=== PATIENT | female | born 1950 | race Caucasian/White ===

== ENCOUNTER 2018-06-01 15:25 | Emergency (ER) | payer OTHER ==
[~2018-06-01] VITALS: Ht 172.7 cm; Wt 79.8 kg
[2018-06-01] MEDS ORDERED: HYDROCODONE/APAP 5/325MG 1 EACH TABLET ONE (15:42)
[2018-06-01] MEDS ORDERED: HYDROCODONE/APAP 10/325MG 1 EA TABLET ONE (15:51)
--- NOTE | 2018-06-01 15:54 | NUR ---
BIB [id number], GLF C/O RT UPPER ARM PAIN & LT KNEE PAIN, -KO, -NECK/BACK PAIN. PT AAOX4, VSS. DENIES CP, SOB, DIZZINESS, N/V @ THIS TIME. SEEN & EVAL'D BY KODAK VENTURA & DR. ESPARZA. MEDICATED FOR PAIN & WILL CONT TO MONITOR.
[2018-06-01] MEDS ORDERED: HYDROCODONE/APAP 5/325MG 1 EACH TABLET PO ONE (16:00)
[2018-06-01] MEDS ORDERED: MORPHINE SULFATE INJ 2 MG/ML DISP.SYRIN IM ONE (16:00)
[2018-06-01] MEDS ORDERED: HYDROCODONE/APAP 10/325MG 1 EA TABLET PO ONE (16:00)
[2018-06-01] MEDS ORDERED: ONDANSETRON 4 MG TAB.RAPDIS SL ONE (16:00)
--- NOTE | 2018-06-01 17:34 | NUR ---
Patient discharged to home in stable condition. Written and verbal after care instructions given. Patient verbalizes understanding of instruction.
[2018-06-01 17:35] VITALS: BP 132/68
== END 2018-06-01 17:37 | disposition home or self-care (01) ==
LOC: ER 15:27
DX: S42.291A Other displaced fracture of upper end of right humerus, initial encounter for closed fracture (principal); S80.212A Abrasion, left knee, initial encounter; M48.061 Spinal stenosis, lumbar region without neurogenic claudication; Z88.0 Allergy status to penicillin; Z88.2 Allergy status to sulfonamides; Z88.1 Allergy status to other antibiotic agents; W18.39XA Other fall on same level, initial encounter; Y93.89 Activity, other specified; Y92.89 Other specified places as the place of occurrence of the external cause; Y99.8 Other external cause status
CPT/HCPCS: 29105; 73030; 73560; 99283; A4606; A6402; Q0162; Z7610